=== PATIENT | male | born 1945 | race African-American/Black ===

== ENCOUNTER 2017-06-29 17:24 | Inpatient (IN) | payer OTHER, MEDICAID, MEDICARE ==
--- NOTE | 2017-06-29 17:44 | ED Physician Chart ---
Chief Complaint/HPI - Patient Information Date Seen:: 06/29/17 Time Seen:: 17:39 Chief Complaint:: SEIZURES History of Present Illness:: THIS IS A 71 YO MALE SENT FROM A HALFWAY FOR AN EVALUATION OF SUDDEN SEIZURE EARLIER TODAY. HE GETS DEPOKOTE FOR HIS SEIZURES. HE HAS A PAST HISTORY OF CVA, PROSTATE CANCER, GERD, ANEMIA, DEMENTIA AND DEPRESSION. HE HAS ALSO HAD HEART SURGERY IN THE PAST. Allergies:: Allergies Allergy/AdvReac Type Severity Reaction Status Date / Time No Known Allergies Allergy Verified 06/29/17 17:31 Vitals:: Vital Signs - 8 hr 06/29/17 17:32 Temp 98.5 F HR 73 RR 18 BP 121/81 O2 Sat % 99 Historian:: Medical Records Review:: Nurse's Note Reviewed, Old Chart Reviewed, Transfer documents Reviewed Review of Systems - Review of Systems General/Constitutional: No fever, No chills, No weight loss, No weakness, No diaphoresis, No edema, No loss of appetite, Other (HE ID NOT ABLE TO GIVE A REVIEW OF SYSTEMS.) Skin: No skin lesions, No rash, No bruising Head: No headache, No light-headedness Eyes: No loss of vision, No pain, No diplopia ENT: No earache, No nasal drainage, No sore throat, No tinnitus Neck: No neck pain, No swelling, No thyromegaly, No stiffness, No mass noted Cardio Vascular: No chest pain, No palpitations, No PND, No orthopnea, No edema Pulmonary: No SOB, No cough, No sputum, No wheezing GI: No nausea, No vomiting, No diarrhea, No pain, No melena, No hematochezia, No constipation, No hematemesis G/U: No dysuria, No frequency, No hematuria Musculoskeletal: No bone or joint pain, No back pain, No muscle pain Endocrine: No polyuria, No polydipsia Psychiatric: No prior psych history, No depression, No anxiety, No suicidal ideation Hematopoietic: No bruising, No lymphadenopathy Allergic/Immuno: No urticaria, No angioedema Neurological: No syncope, No focal symptoms, No weakness, No paresthesia, No headache, No seizure, No dizziness, No confusion, No vertigo Past Medical History - Past Medical History Obtainable: Yes Past Medical History: HTN, CAD, CVA/TIA, Dyslipidemia, PUD/GERD, Seizures, Dementia Family History: None Social History: Non Smoker, No Alcohol, No Drug Use, Single, Care Facility Surgical History: CABG Psychiatricy History: Depression Family Medical History - Family Member Mother History Unknown: Yes Living Status: Unknown Hx Family Cancer: (UNKNOWN) Hx Family Coronary Artery Disease: (UNKNOWN) Hx Family Congestive Heart Failure: (UNKNOWN) Hx Family Hypertension: (UNKNOWN) Hx Family Stroke: (UNKNOWN) Hx Family Diabetes: (UNKNOWN) Hx Family Seizures: (UNKNOWN) Hx Family Dementia: (UNKNOWN) Hx Family AIDS: (UNKNOWN) Hx Family COPD: (UNKNOWN) Hx Family Hepatitis: (UNKNOWN) Hx Family Psychiatric Problems: (UNKNOWN) Hx Family Tuberculosis: (UNKNOWN) Physical Exam - Physical Examination General/Constitutional: Awake, Well-developed, well-nourished, Alert, No distress, GCS 15, Non-toxic appearing, Ambulatory Other Gen/Cons comments:: LETHARGIC Head: Atraumatic Eyes: Lids, conjuctiva normal, PERRL, EOMI Skin: Nl inspection, No rash, No skin lesions, No ecchymosis, Well hydrated, No lymphadenopathy ENMT: External ears, nose nl, Nasal exam nl, Lips, teeth, gums nl Neck: Nontender, Full ROM w/o pain, No JVD, No nuchal rigidity, No bruit, No mass, No stridor Respiratory: Nl effort/Exclusion, Clear to Auscultation, No Wheeze/Rhonchi/Rales Cardio Vascular: RRR, No murmur, gallop, rubs, NL S1 S2 GI: No tenderness/rebounding/guarding, No organomegaly, No hernia, Normal BS's, Nondistended, No mass/bruits, No McBurney tenderness : No CVA tenderness Extremities: No tenderness or effusion, Full ROM, normal strength in all extremities, No edema, Normal digits & nails Neuro/Psych: Alert/oriented, DTR's symmetric, Normal sensory exam, Normal motor strength, Judgement/insight normal, Mood normal, Normal gait Other Neuro/Psych comments:: THERE IS RIGHT UPPER AND LOWER EXTREMITY SPASTIC PARALYSIS AND IS ALERT AND ORIENTED AT TIMES. Misc: normal gait, Normal back, No paraspinal tenderness Labs/Radiology/EKG Results - EKG Interpretations EKG Time:: 17:35 Rate & Rhythm: RATE= 71, SINUS [place]: LEFT Assessment - Assessment General Assessment: SEIZURES UNCONTROLLED ED Septic Shock - . Is Septic Shock (SBP<90, OR Lactate>4 mmol\L) present?: No - <6hrs of presentation: Vital Signs: Vital Signs - 8 hr 06/29/17 17:32 Temp 98.5 F HR 73 RR 18 BP 121/81 O2 Sat % 99
[2017-06-29 18:09] LABS: INR 1.17 (0.5-1.4); PROTHROMBIN TIME (TEST) 12.3 SECONDS (9.5-11.5)
[2017-06-29 18:11] LABS: ALB/GLOB RATIO 0.6 (1.0-1.8); ALKALINE PHOSPHATASE 45 U/L (34-104); ANION GAP 8.7 (7.0-16.0); BILIRUBIN,TOTAL 0.3 mg/dL (0.3-1.0); BUN - UREA NITROGEN 18 mg/dL (7-25); BUN/CREATININE RATIO 25.7; CARBON DIOXIDE 24.5 mEq/L (21.0-31.0); CHLORIDE 108 mEq/L (98-107); CHOLESTEROL 174 mg/dL (<200); CREATININE - SERUM 0.7 mg/dL (0.7-1.3); GLUCOSE 79 mg/dL (70-105); POTASSIUM SERUM 3.2 mEq/L (3.5-5.1); SGOT 18 U/L (13-39); SGPT/ALT 10 U/L (7-52); SODIUM SERUM 138 mEq/L (136-145); TRIGLYCERIDES 97 mg/dL (<150)
[2017-06-29 18:50] LABS: MEAN CELL VOLUME 82.1 fl (80-99); MEAN CORPUSCULAR HEMOGLOBIN 26.4 pg (27.0-31.0); MEAN CORPUSCULAR HGB CONC 32.2 pg (28.0-36.0); MEAN PLATELET VOLUME 8.9 fl; PLATELET COUNT 286 Th/cmm (150-400); RED BLOOD COUNT 3.43 Mil/cmm (3.80-5.80)
[2017-06-29 18:59] LABS: WHITE BLOOD COUNT 6.7 Th/cmm (4.8-10.8)
[2017-06-29 19:00] LABS: HEMATOCRIT 28.2 % (39.0-49.0); HEMOGLOBIN 9.1 gm/dL (12.6-17.4)
[2017-06-29 20:11] LABS: EOSINOPHIL 3 % (0-5); NEUTROPHILS 63 % (40-80); TOTAL CELLS COUNTED 100
[2017-06-29] MEDS ORDERED: Phenytoin 50 mg/mL 2 mL Vial IV ONE (22:49)
[2017-06-29 23:16] LABS: URINE BILIRUBIN NEGATIVE (NEGATIVE); URINE BLOOD NEGATIVE (NEGATIVE); URINE GLUCOSE (UA) NEGATIVE (NEGATIVE); URINE KETONE NEGATIVE (NEGATIVE); URINE PROTEIN TRACE mg/dL (NEGATIVE)
[2017-06-29 23:19] LABS: URINE COLOR YELLOW; URINE RBC 0-1 /hpf (0-5); URINE WBC 0-2 /hpf (0-5)
[2017-06-29 23:20] LABS: URINE BACTERIA OCCASIONAL /hpf (NONE SEEN); URINE EPITHELIAL CELLS FEW /lpf (FEW)
[2017-06-29] MEDS ORDERED: Phenytoin 50 mg/mL 5 mL Vial IV ONE (23:46)
[2017-06-30] MEDS: D5-0.45NS 1,000 ML IV SCH ×2 (00:04→19:46)
[2017-06-30] MEDS ORDERED: Phenytoin 50 mg/mL 5 mL Vial IV ONE (04:56)
[2017-06-30] MEDS: SODIUM CHLORIDE 0.9% IV SCH ×3 (05:19→21:17)
[2017-06-30] MEDS: PHENYTOIN IV SCH ×3 (05:19→21:17)
[2017-06-30 07:22] LABS: HEMOGLOBIN 10.8 gm/dL (12.6-17.4); MEAN CORPUSCULAR HEMOGLOBIN 26.1 pg (27.0-31.0); MEAN CORPUSCULAR HGB CONC 31.9 pg (28.0-36.0); RED BLOOD COUNT 4.13 Mil/cmm (3.80-5.80); RED CELL DISTRIBUTION WIDTH 18.7 % (11.5-20.0); WHITE BLOOD COUNT 6.9 Th/cmm (4.8-10.8)
[2017-06-30 07:26] LABS: HEMATOCRIT 33.8 % (39.0-49.0); PLATELET COUNT 359 Th/cmm (150-400)
[2017-06-30 07:42] LABS: ANION GAP 10.2 (7.0-16.0); BUN - UREA NITROGEN 16 mg/dL (7-25); BUN/CREATININE RATIO 22.9; CALCIUM SERUM 9.1 mg/dL (8.6-10.3); CARBON DIOXIDE 23.2 mEq/L (21.0-31.0); CHLORIDE 108 mEq/L (98-107); CHOLESTEROL 187 mg/dL (<200); CREATININE - SERUM 0.7 mg/dL (0.7-1.3); GLUCOSE 82 mg/dL (70-105); MAGNESIUM 1.9 mg/dL (1.9-2.7); POTASSIUM SERUM 3.4 mEq/L (3.5-5.1); SODIUM SERUM 138 mEq/L (136-145); TRIGLYCERIDES 80 mg/dL (<150)
--- NOTE | 2017-06-30 08:09 | Diagnostic Imaging Report ---
Exam: CT examination of brain. HISTORY: Seizure Total DLP equals 605 CTDI equals 35.6 Findings: Multiple views of the section of the brain were obtained from the base of skull to the vertex without the administration of contrast material. No prior studies available for comparison. The study demonstrates encephalomalacia with left temporal lobe low density area which most likely represent an old infarct. There is evidence of prominence of cerebral sulci suggestive of atrophy. There is ischemic white matter changes of old etiology appreciated. There is no evidence for hemorrhage midline shift or edema. The bony calvarium is intact the paranasal sinuses are well aerated. Mild sclerosis of mastoid air cells appreciated. IMPRESSION: 1. Atrophy 2. Encephalomalacia old infarct in the left temporoparietal lobe
--- NOTE | 2017-06-30 08:10 | Diagnostic Imaging Report ---
Exam: Portable exam of chest at 1741 HISTORY: Seizure Findings: Portable upright examination of chest at 1741 was reviewed, no prior studies available for comparison. The study demonstrates multiple metallic sutures status post restaurant thoracotomy. Mediastinal structures midline the heart is not enlarged the aortic arch calcified. Bony thorax intact. The costophrenic angles are clear. There is mild ill-defined peribronchial thickening area in the right midlung follow-up dictation recommended. IMPRESSION: ill-defined peribronchial density right midlung, early infiltrate cannot be excluded follow-up examination recommended if clinically indicated.
[2017-06-30 08:11] LABS: PHENYTOIN 28.8 ug/ml (10.0-20.0)
[2017-06-30 08:34] LABS: BAND NEUTROPHILE 4 % (0-10); EOSINOPHIL 2 % (0-5); NEUTROPHILS 76 % (40-80); TOTAL CELLS COUNTED 100
[2017-06-30 08:35] LABS: ANISOCYTOSIS 1+; PLATELET ESTIMATE ADEQUATE (NORMAL); PLATELET MORPHOLOGY NORMAL (NORMAL); TARGET CELLS 1+
[2017-06-30] MEDS ORDERED: VTE Chemical Prophylaxis Screen/Admission MC PRN (09:00)
--- NOTE | 2017-06-30 13:54 | History & Physical ---
ADMIT DATE: 06/30/2017 CHIEF COMPLAINT: Seizure activity. HISTORY OF PRESENT ILLNESS: This 71-year-old male, who lives in a detention facility, with a history of CVA, prostate CA, GERD, anemia, dementia, who presented to the ER with one episode of seizure activity. The patient is somewhat of a poor historian, but he denies any prolonged seizure activity, but could not tell me when the last time he had a seizure. Pertinent findings on admission include a valproic acid less than 10, although I dont believe pt is on Depakoate. He also is on Dilantin and Keppra. PAST MEDICAL HISTORY: As noted above, also history of hyperlipidemia, glaucoma, as noted above, CVA with right-sided hemiplegia, history of anemia, history of CAD/[place], essential hypertension. PAST SURGICAL HISTORY: Unknown. He does have a lower extremity scar. FAMILY HISTORY: Likely noncontributory. SOCIAL HISTORY: Currently, no tobacco, ETOH, or illicit drug usage. Lives at [facility]. ALLERGIES: NKDA. OUTPATIENT MEDICATIONS: Ibuprofen 600 mg t.i.d. p.r.n. with meals for pain, Keppra 500mg b.i.d., latanoprost one drop to the left eye, multivitamins every day, timolol 0.5% solution 1 drop to each eye once a day, Pletal 100 mg b.i.d., Megace 10 mL b.i.d., multivitamins and minerals 1 tab every day, Tylenol 325 q. 6 p.r.n. for pain or fever, Zocor 20 mg at bedtime, vitamin D3 1000 international units every day. REVIEW OF SYSTEMS: A good review of systems was not able to be done given patient's condition, but per notes, there is no recent history of fever or chills. CARDIAC: No chest pain or palpitations. PULMONARY: No cough. No shortness of breath. GASTROINTESTINAL: No bowel habit changes including no nausea, vomiting, diarrhea, abdominal pain. GENITOURINARY: No symptoms of UTI. NEUROLOGIC: Please refer to HPI. PHYSICAL EXAMINATION: VITAL SIGNS: Temperature 97.0, pulse 85, respirations 18, BP 109/73, satting 99% on room air. GENERAL: He is well developed, well nourished, thin male, currently asleep, arousable. HEENT: Normocephalic, atraumatic. His eye exam was difficult to assess, but there is noticeable cloudiness on the right eye. Oropharynx moist and clear. NECK: There is no JVD or LAD. CARDIOVASCULAR: Regular rate and rhythm with distant sounds. LUNGS: Clear to auscultation bilaterally. ABDOMEN: Soft, supple, nontender, nondistended, normoactive bowel sounds. EXTREMITIES: On lower extremities, there is no pedal edema. NEUROLOGIC: Grossly intact. There is right-sided weakness on the upper extremities and there appears to be a decreased range of much on the right side. Cranial nerves 2-12 appear to be grossly intact. Full exam cannot be done given patient's condition. LABORATORY DATA: White count 6.7, H and H 9/, platelet count of 286. INR is 1.17. Sodium 138, potassium 3.2, chloride 108, CO2 24, BUN 18, creatinine 0.7. LFTs were essentially within normal limits. Albumin 2.8 and glucose 79. UA was essentially within normal limits. Valproic acid is less than 10 and Dilantin level is 28. DIAGNOSTICS: CT of the head without contrast shows: 1. Atrophy. 2. Encephalomalacia/old infarct in the left temporoparietal lobe. Chest x-ray shows an ill-defined peribronchial density in the right mid lung, early infiltrate cannot be excluded. IMPRESSION: 1. Seizures with under therapeutic Depakote level. 2. History of seizure activity. 3. History of old cerebrovascular accident. 4. History of coronary artery disease, currently stable. 5. History of essential hypertension. 6. History of hyperlipidemia. 7. History of glaucoma. 8. History of dementia likely secondary to cerebrovascular accident. 9. Rule out pneumonia. PLAN: The patient has been admitted to telemetry for further management and care. The patient will be monitored for seizure activity. Seizure precautions have been implemented. His Dilantin and Keppra have been converted to IV. Depakoate will be started as well. A Neurology eval also has been asked for further management and care. The patient will be started on empiric IV antibiotics and followup x-ray will be done in the morning. An ST eval also has been asked for and his other p.o. medications will be started once he is cleared for p.o. intake. [facility]# [id number] MTDD
[2017-06-30] MEDS: KCL 20mEq/100mL Premix 20 MEQ/100 ML PIGGYBACK IV SCH ×2 (16:09→21:19)
[2017-06-30] MEDS: cefTRIAXone 1 GM in Sodium Chloride 0.9% 50 ML IV SCH (19:46)
[2017-06-30] MEDS ORDERED: SIMVASTATIN PO SCH (21:00)
[2017-06-30] MEDS ORDERED: KCL 20mEq/100mL Premix 20 MEQ/100 ML PIGGYBACK IV ONE (21:17)
--- NOTE | 2017-07-01 04:12 | Admit Criteria Form ---
Admit Criteria Forms - Admit Criteria Diagnosis: SEIZURE Clinical Indications for Admission to Inpatient Care (Place 'X' for any and all applicable criteria): Admission is indicated for seizure and 1 or more of the following (1)(2)(3)(4)(5 )(6) [X ]I. Inpatient admission required rather than observation care (Also use Seizure: Observation Care Criteria as appropriate) because of 1 or more of the following: [ ]1) Altered mental status that is severe or persistent [ ]2) New focal neurologic deficit that is severe or persistent [ ]3) Metabolic disorder (eg, hypoglycemia, hyponatremia) that is severe or persistent [ ]4) Recurrent seizure [X ]5) Outpatient antiseizure regimen cannot be established (eg , patient cannot tolerate medication, initiation requires inpatient care) [ ]6) Need for ongoing intravenous infusion of anti-seizure medication [ ]7) Cerebral bleeding, hydrocephalus, or vasospasm monitoring [ ]8) Increased intracranial pressure or cerebral edema monitoring [ ]9) Other conditions, treatment or monitoring requiring inpatient admission [ ]II. Status epilepticus [A] or repetitive seizures not controlled with emergent treatment (6)(8) [ ]III. Brain disorder (eg, tumor, edema, and hydrocephalus) that requiring monitoring or intervention available only at inpatient level of care. [ ]IV. Brain insult (eg, severe trauma, stroke, drug toxicity, or withdrawal) that requires monitoring or intervention available only at inpatient level of care (10)(11) [ ]V. Cardiac arrhythmias of immediate concern Extended stay beyond goal length of stay may be needed for (22) [ ]a) Complications of status epilepticus [ ]b) Refractory status epilepticus [ ]c) Etiology-specific therapy for conditions such as DISPLAY ASSOCIATE infection, head injury,eclampsia, severe metabolic abnormalities, and brain tumor [ ]d) Residual neurologic damage, [ ]e) Initiation of significant change to anticonvulsant treatment [ ]f) Older patients (65 years or older) [ ]g) Patient requiring intubation (eg, to protect airway) The original [facility] [employer] content created by [facility] [employer] has been revised. The portions of the content which have been revised are identified through the use of italic text or in bold, and [facility] [employer] has neither reviewed nor approved the modified material. All other unmodified content is copyright [facility]. Please see references footnoted in the original [facility] edition 2017 Admit Criteria Met?: Yes
[2017-07-01 07:05] LABS: HEMATOCRIT 36.3 % (39.0-49.0); HEMOGLOBIN 11.4 gm/dL (12.6-17.4); MEAN CELL VOLUME 81.1 fl (80-99); MEAN CORPUSCULAR HEMOGLOBIN 25.4 pg (27.0-31.0); MEAN CORPUSCULAR HGB CONC 31.3 pg (28.0-36.0); MEAN PLATELET VOLUME 7.8 fl; RED BLOOD COUNT 4.48 Mil/cmm (3.80-5.80); RED CELL DISTRIBUTION WIDTH 19.1 % (11.5-20.0); WHITE BLOOD COUNT 6.8 Th/cmm (4.8-10.8)
[2017-07-01 07:07] LABS: PLATELET COUNT 226 Th/cmm (150-400)
[2017-07-01 08:08] LABS: ANION GAP 15.2 (7.0-16.0); BUN - UREA NITROGEN 14 mg/dL (7-25); BUN/CREATININE RATIO 23.3; CALCIUM SERUM 9.1 mg/dL (8.6-10.3); CARBON DIOXIDE 18.8 mEq/L (21.0-31.0); CHLORIDE 111 mEq/L (98-107); CREATININE - SERUM 0.6 mg/dL (0.7-1.3); GLUCOSE 75 mg/dL (70-105); SODIUM SERUM 141 mEq/L (136-145)
[2017-07-01 08:10] LABS: PHENYTOIN 25.1 ug/ml (10.0-20.0)
[2017-07-01 08:29] LABS: BAND NEUTROPHILE 4 % (0-10); EOSINOPHIL 4 % (0-5); NEUTROPHILS 72 % (40-80); PLATELET ESTIMATE ADEQUATE (NORMAL); PLATELET MORPHOLOGY PLATELET CLUMPS SEEN (NORMAL); TOTAL CELLS COUNTED 100
[2017-07-01] MEDS: cefTRIAXone 1 GM in Sodium Chloride 0.9% 50 ML IV SCH (13:38)
[2017-07-01] MEDS: D5-0.45NS 1,000 ML IV SCH (13:39)
--- NOTE | 2017-07-01 20:40 | Consultation ---
DATE OF CONSULTATION: 07/01/2017 NEUROLOGY CONSULT HISTORY OF PRESENT ILLNESS: The patient is a 71-year-old who came in because the patient has seizure. The patient has known history of seizures. MEDICATIONS: For seizure, the patient is on Depakote 500 b.i.d. and Keppra 750 b.i.d. PAST MEDICAL HISTORY: 1. The patient has previous stroke with right hemiplegia and speech difficulty. 2. History of hypertension. 3. Coronary artery disease and IN. 4. Hyperlipidemia. 5. Glaucoma. 6. Dementia with very little memory. SURGERIES: Unknown. SOCIAL HISTORY: Does not smoke or drink, in a facility. REVIEW OF SYSTEMS: The patient has no seizures here. Right hemiplegia, able to swallow. Memory loss. PHYSICAL EXAMINATION: VITAL SIGNS: Temperature 98.2, blood pressure 110/70, pulses around about 80. NECK: Supple, no bruits. HEART: Sounds S1, S2. LUNGS: Clear. NEUROLOGIC: The patient is awake. He is able to name simple objects such as pen and glasses. When asked him his age, he said, "I don't know." When asked him where he lives, he says, "I don't know." The patient has right corneal scarring. Left vision present. The patient's right arm in semi-flexed contracture. The right leg is extended. Very loose movement of the right side. Will move the left side. INVESTIGATIONS: CT scan of the head, previous left temporoparietal infarction. LABORATORY DATA: WBC 6.8 and hemoglobin 11.4. Sodium 141. The patient's phenytoin level 28.8 and today on 07/01/2017 is 25.1. Valproic acid level on 06/29/2017 was less than 10, now is 38.9. IMPRESSION: 1. Seizures. The patient with phenytoin toxicity. At the moment, being held. We will restart once the level is below 20. Also, continue the patient's Depakote and Keppra. 2. The patient has history of stroke with right hemiplegia and partial aphasia. 3. Hypertension. 4. ____ Rule out pneumonia. 5. . Rule out urinary tract infection. JOB# [id number]
[2017-07-01] MEDS ORDERED: SIMVASTATIN PO SCH (21:00)
[2017-07-02] MEDS: D5-0.45NS 1,000 ML IV SCH (06:24)
[2017-07-02 06:36] LABS: RED CELL DISTRIBUTION WIDTH 18.7 % (11.5-20.0); WHITE BLOOD COUNT 6.2 Th/cmm (4.8-10.8)
[2017-07-02 06:42] LABS: HEMATOCRIT 32.3 % (39.0-49.0); HEMOGLOBIN 10.4 gm/dL (12.6-17.4); MEAN CELL VOLUME 82.1 fl (80-99); MEAN CORPUSCULAR HEMOGLOBIN 26.4 pg (27.0-31.0); MEAN CORPUSCULAR HGB CONC 32.2 pg (28.0-36.0); MEAN PLATELET VOLUME 7.9 fl; PLATELET COUNT 272 Th/cmm (150-400)
[2017-07-02 06:54] LABS: RED BLOOD COUNT 3.92 Mil/cmm (3.80-5.80)
[2017-07-02 06:57] LABS: ANION GAP 8.3 (7.0-16.0); BUN - UREA NITROGEN 13 mg/dL (7-25); BUN/CREATININE RATIO 18.6; CALCIUM SERUM 8.5 mg/dL (8.6-10.3); CARBON DIOXIDE 24.5 mEq/L (21.0-31.0); CHLORIDE 107 mEq/L (98-107); CREATININE - SERUM 0.7 mg/dL (0.7-1.3); GLUCOSE 73 mg/dL (70-105); MAGNESIUM 1.8 mg/dL (1.9-2.7); PHENYTOIN 14.1 ug/ml (10.0-20.0); POTASSIUM SERUM 3.8 mEq/L (3.5-5.1); SODIUM SERUM 136 mEq/L (136-145)
--- NOTE | 2017-07-02 07:49 | Progress Notes ---
DATE: 07/02/2017 SUBJECTIVE: The patient is in bed, awake. He has dysarthric aphasia. The patient noted these seizures. The patient is with right hemiplegia. MEDICATIONS: Keppra 750 b.i.d., Depakote 500 mg b.i.d. OBJECTIVE: VITAL SIGNS: Temperature is 98.4, blood pressure is 115/74, pulse rate 76. NECK: Supple. No bruits. HEART: Sounds S1, S2. LUNGS: Clear. NEUROLOGIC: The patient will answer simple questions, "I don't know." EYES: The right cornea was scarring. Left vision present. EXTREMITIES: Right arm and leg weakness. Right arm flexed. Left extended. INVESTIGATIONS: CT scan, left temporoparietal infarction. ASSESSMENT: 1. Seizure. 2. Previous stroke with right hemiplegia, partial aphasia. 3. Hypertension. 4. Rule out pneumonia. 5. Rule out urinary tract infection. PLAN: Continue present medication, Keppra and Depakote. JOB# [id number]
[2017-07-02] MEDS ORDERED: Multivitamin w/ Minerals Tab PO SCH (09:00)
[2017-07-02] MEDS ORDERED: LACTOSE REDUCED FOOD PO SCH (09:00)
[2017-07-02] MEDS ORDERED: PROTEIN HYDROLYS PO SCH (09:00)
[2017-07-02] MEDS ORDERED: AMINO ACIDS PO SCH (09:00)
[2017-07-02 09:16] LABS: BAND NEUTROPHILE 2 % (0-10); TOTAL CELLS COUNTED 100
[2017-07-02 09:17] LABS: EOSINOPHIL 4 % (0-5); NEUTROPHILS 67 % (40-80); PLATELET ESTIMATE ADEQUATE (NORMAL)
--- NOTE | 2017-07-02 09:24 | Diagnostic Imaging Report ---
Exam: Chest portable HISTORY: Pneumonia. Findings Portable upright examination of the chest at 0907 hours reviewed, no prior studies available comparison. Bony thorax is intact. Multiple metallic sutures are noted status post transsternal thoracotomy. The heart is prominent. Atelectatic changes in right minor fissure appreciated There is evidence for distention and dilatation of the bowel loops under the left hemidiaphragm with elevation left hemidiaphragm. Left basilar atelectasis versus early infiltrate cannot be excluded. Bony thorax intact. IMPRESSION: Right minor fissure atelectasis Question of left basilar infiltrates. Elevation left hemidiaphragm with distended colon.
--- NOTE | 2017-07-02 11:22 | Discharge Summary ---
DATE OF DISCHARGE: 07/02/2017 ADMITTING DIAGNOSES: Seizure activity, questionable right mid lung infiltrate and Dilantin toxicity. SECONDARY DIAGNOSES: Include history of cerebrovascular accident with right hemiparesis and dementia, history of chronic anemia, history of seizures, history of coronary artery disease/myocardial infarction, essential hypertension, glaucoma, hyperlipidemia. DISCHARGE DIAGNOSES: Seizures resolved, Dilantin toxicity resolved. Right mid lung density, clinically stable. CONSULTANTS: Dr. Sexton. MAJOR PROCEDURES: He underwent a CT of the head on 06/29/2017 showin. Atrophy. 2. Encephalomalacia/old infarct in the left temporal lobe. DISCHARGE MEDICATIONS: Acetaminophen p.r.n. for headaches or pain, Depakote DR 500 mg b.i.d., heparin 5000 units q.12, latanoprost eyedrops 1 drop to left eye at 1300 hours, Keppra 750 b.i.d., Dilantin 100 mg t.i.d., simvastatin 20 mg at bedtime, timolol solution 1 drop per eye, amino acids and protein solution, vitamin D3 1000 units every day, Pletal 100 mg b.i.d.; Motrin 600 mg t.i.d. p.r.n. for pain, Megace 10 mL b.i.d., and multivitamins and minerals every day. BRIEF HOSPITAL COURSE: The patient is a 71-year-old -[place] gentleman with the above-mentioned diagnoses, [facility] and now has been followed up by years by Dr. Griffin's service. The patient was transferred to the ER after he was found by a SNF nurse shaking with consistency of previous seizure activities, which I am unsure as to when was the last time he had a seizure episode. Nevertheless, he was transferred to the ER where pertinent findings included a CT of the head, which was essentially negative. Please see results above and he also was noted to have a valproic acid less than 10, although the patient did not come in with valproic acid as one of his home meds. He also apparently had no Dilantin, but he was loaded with an IV Dilantin dose by the ER physician, apparently his only home med for seizure was Keppra. The patient was admitted to the telemetry [place] and as noted above, was loaded with Dilantin and eventually was started on Depakote. His Dilantin level was noted to be high by 06/30/2017 at 28.8, but had normalized to level of 14.1 by 07/02/2017. His Depakote also was noted to be therapeutic by 07/02/2017 at a level 52.2. His confusion quickly resolved. He was admitted, able to tolerate clear liquids and eventually pureed diet well. As far as of his workup, there was an x-ray done on admission showing a questionable right middle lobe density, which a repeat x-ray has been ordered with official results pending. However, patient is asymptomatic with showing no pulmonary or septic signs and symptoms. CONDITION ON DISCHARGE: Stable. DISPOSITION: The patient will be transferred back to [facility] under the care of Dr. Griffin. JOB# [id number] ALON
[2017-07-02] MEDS: cefTRIAXone 1 GM in Sodium Chloride 0.9% 50 ML IV SCH (15:10)
== END 2017-07-02 16:14 | disposition home or self-care (01) | DRG 101 ==
LOC: ER 17:24 → TELE 21:30 → MSI 07-02 08:45
PROVIDERS: ADMIT Internal Medicine; ATTEND Internal Medicine
DX: R56.9 Unspecified convulsions (principal); G93.89 Other specified disorders of brain; F03.90 Unspecified dementia, unspecified severity, without behavioral disturbance, psychotic disturbance, mood disturbance, and anxiety; E44.1 Mild protein-calorie malnutrition; I69.351 Hemiplegia and hemiparesis following cerebral infarction affecting right dominant side; J98.11 Atelectasis; I25.10 Atherosclerotic heart disease of native coronary artery without angina pectoris; I10 Essential (primary) hypertension; E78.5 Hyperlipidemia, unspecified; H40.9 Unspecified glaucoma; K21.9 Gastro-esophageal reflux disease without esophagitis; F32.9 Major depressive disorder, single episode, unspecified; T42.0X5A Adverse effect of hydantoin derivatives, initial encounter; D64.9 Anemia, unspecified; J98.4 Other disorders of lung; I25.2 Old myocardial infarction; Z85.46 Personal history of malignant neoplasm of prostate; Z87.11 Personal history of peptic ulcer disease; Z95.1 Presence of aortocoronary bypass graft; I69.328 Other speech and language deficits following cerebral infarction; Y92.89 Other specified places as the place of occurrence of the external cause; I69.320 Aphasia following cerebral infarction
CPT/HCPCS: 36415-UA; 70450-TC; 71010-TC; 80048-TC; 80053-TC; 80061-TC; 80164-TC; 80185-TC; 80299-90; 81001-TC; 83036-90; 83735-TC; 84443-TC; 84484-TC; 85007-TC; 85027-TC; 85610-TC; 85730-TC; 87086-90; 93005; J0696; J1165; J1644; J3480; Z7610

== ENCOUNTER 2017-07-27 13:58 | Inpatient (IN) | payer MEDICARE, MEDICAID ==
--- NOTE | 2017-07-27 14:26 | ED Physician Chart ---
ED Chief Complaint/HPI - Patient Information Date Seen:: 07/27/17 Time Seen:: 14:11 Chief Complaint:: ALOC History of Present Illness:: THIS IS A CHRONICALLY ILL 71 YO MALE SENT HERE FROM THE [facility] FOR [facility]ALUATION AND TREATMENT. HE HAS A HISTORY OF SEIZURES, STROKES AND DEMENTIA. HE IS COMPLETELY ALTERED. Allergies:: Allergies Allergy/AdvReac Type Severity Reaction Status Date / Time No Known Allergies Allergy Verified 06/29/17 17:31 Vitals:: Vital Signs - 8 hr 07/27/17 14:01 Temp 97.8 F HR 88 RR 16 BP 127/73 O2 Sat % 98 Historian:: EMS, Medical Records Review:: Nurse's Note Reviewed, Transfer documents Reviewed ED Review of Systems - Review of Systems General/Constitutional: Other (THE PATIENT IS UNABLE TO GIVE A REVIEW OF SYSTEMS.) ED Past Medical History - Past Medical History Obtainable: Yes Past Medical History: HTN, CAD, CVA/TIA, Dyslipidemia, Seizures, Dementia Family History: None Social History: Non Smoker, No Alcohol, No Drug Use, Care Facility Surgical History: None Psychiatricy History: Dementia Medication: Reviewed Family Medical History - Family Member Mother History Unknown: Yes Ethnicity: Non- Living Status: Unknown Hx Family Cancer: (UNKNOWN) Hx Family Coronary Artery Disease: (UNKNOWN) Hx Family Congestive Heart Failure: (UNKNOWN) Hx Family Hypertension: (UNKNOWN) Hx Family Stroke: (UNKNOWN) Hx Family Diabetes: (UNKNOWN) Hx Family Seizures: (UNKNOWN) Hx Family Dementia: (UNKNOWN) Hx Family AIDS: (UNKNOWN) Hx Family COPD: (UNKNOWN) Hx Family Hepatitis: (UNKNOWN) Hx Family Psychiatric Problems: (UNKNOWN) Hx Family Tuberculosis: (UNKNOWN) ED Physical Exam - Physical Examination General/Constitutional: Well-developed, well-nourished, Alert, No distress, GCS 15, Non-toxic appearing, Ambulatory Other Gen/Cons comments:: THE PATIENT IS LETHARGIC AND RESPONSIVE TO HIS NAME ONLY. Head: Atraumatic Eyes: Lids, conjuctiva normal, PERRL, EOMI Skin: Nl inspection, No rash, No skin lesions, No ecchymosis, Well hydrated, No lymphadenopathy ENMT: External ears, nose nl, Nasal exam nl, Lips, teeth, gums nl Neck: Nontender, Full ROM w/o pain, No JVD, No nuchal rigidity, No bruit, No mass, No stridor Respiratory: Nl effort/Exclusion, Clear to Auscultation, No Wheeze/Rhonchi/Rales Cardio Vascular: RRR, No murmur, gallop, rubs, NL S1 S2 GI: No tenderness/rebounding/guarding, No organomegaly, No hernia, Normal BS's, No mass/bruits, No McBurney tenderness Other GI comments:: ABDOMEN IS SOFT BUT DISTENDED : No CVA tenderness Extremities: No tenderness or effusion, Full ROM, normal strength in all extremities, No edema, Normal digits & nails Neuro/Psych: DTR's symmetric (DISORIENTED X3, UNEQUAL DTR'S,RIGHT SIDED SPASTIC PARALYSIS.), Normal sensory exam, Normal motor strength Misc: normal gait, Normal back, No paraspinal tenderness ED Labs/Radiology/EKG Results - Lab Results Results: Abnormal Lab Results 07/27/17 07/27/17 07/27/17 14:54 14:54 14:54 WBC 7.6 D RBC 3.84 Hgb 10.3 L Hct 32.3 L MCV 84.2 MCH 26.8 L MCHC Differential 31.8 RDW 20.7 H Plt Count 279 MPV 8.3 Neutrophils % 73.1 Lymphocytes % 15.0 L Monocytes % 9.3 Eosinophils % 2.5 Basophils % 0.1 PT 14.7 H INR 1.39 PTT (Actin FS) 25.2 L Sodium Potassium Chloride Carbon Dioxide Anion Gap BUN Creatinine Est GFR ( Amer) Est GFR (Non-Af Amer) BUN/Creatinine Ratio Glucose Calcium Total Bilirubin AST ALT Alkaline Phosphatase Troponin I Total Protein Albumin Globulin Albumin/Globulin Ratio Triglycerides 89 Cholesterol 150 LDL Cholesterol Direct 98 HDL Cholesterol 37 Phenytoin Valproic Acid 07/27/17 07/27/17 07/27/17 14:54 14:54 14:54 WBC RBC Hgb Hct MCV MCH MCHC Differential RDW Plt Count MPV Neutrophils % Lymphocytes % Monocytes % Eosinophils % Basophils % PT INR PTT (Actin FS) Sodium 142 Potassium 4.0 Chloride 112 H Carbon Dioxide 21.7 Anion Gap 12.3 BUN 26 H Creatinine 0.7 Est GFR ( Amer) TNP Est GFR (Non-Af Amer) TNP BUN/Creatinine Ratio 37.1 Glucose 91 Calcium 9.3 Total Bilirubin 0.3 AST 36 ALT 16 Alkaline Phosphatase 62 Troponin I 0.01 Total Protein 8.5 H Albumin 3.1 L Globulin 5.4 Albumin/Globulin Ratio 0.6 L Triglycerides Cholesterol LDL Cholesterol Direct HDL Cholesterol Phenytoin 24.5 H Valproic Acid 07/27/17 14:54 WBC RBC Hgb Hct MCV MCH MCHC Differential RDW Plt Count MPV Neutrophils % Lymphocytes % Monocytes % Eosinophils % Basophils % PT INR PTT (Actin FS) Sodium Potassium Chloride Carbon Dioxide Anion Gap BUN Creatinine Est GFR ( Amer) Est GFR (Non-Af Amer) BUN/Creatinine Ratio Glucose Calcium Total Bilirubin AST ALT Alkaline Phosphatase Troponin I Total Protein Albumin Globulin Albumin/Globulin Ratio Triglycerides Cholesterol LDL Cholesterol Direct HDL Cholesterol Phenytoin Valproic Acid 50.0 - EKG Interpretations EKG Time:: 14:13 Rate & Rhythm: RATE= 86, NSR, LEFT AXIS [place]: LEFT ED Assessment - Assessment General Assessment: SEIZURE DISORDER WITH LOW DEPAKOTE LEVEL AND TOXIC DILANTIN LEVEL ED Septic Shock - . Is Septic Shock (SBP<90, OR Lactate>4 mmol\L) present?: No - <6hrs of presentation: Vital Signs: Vital Signs - 8 hr 07/27/17 14:01 Temp 97.8 F HR 88 RR 16 BP 127/73 O2 Sat % 98 ED Reassessment (Disposition) - Diagnosis Diagnosis:: ALOC SEIZURE DISORDER DILANTIN TOXICITY - Patient Disposition Discharge/Transfer:: Acute Care w/in this hosp Admitting Medical Physician:: Robbie Coles Condition at Disposition:: Unchanged ED Discharge Plan - Patient Disposition Admit/Discharge/Transfer: Acute Care w/in this hosp Condition at Disposition: Unchanged
--- NOTE | 2017-07-27 15:02 | Diagnostic Imaging Report ---
CHEST X-RAY: AP view INDICATION: Shortness of breath COMPARISON: 07/02/2017 FINDINGS: Slight residual right midlung infiltrate is noted. Left basal atelectasis is noted with left trace left pleural fluid.. Gas distended loops of bowel are seen with elevation of left hemidiaphragm. There is evidence of prior median sternotomy. Mild cardiomegaly is noted with tortuous aorta with atherosclerosis. Degenerative changes of the spine are noted. IMPRESSION: Slight residual right midlung infiltrate. Left basal atelectasis and trace left pleural effusion. Mild cardiomegaly with atherosclerosis. Gaseous distended loops of bowel gas noted.
[2017-07-27 15:07] LABS: % BASOPHILS 0.1 % (0.0-2.0); % EOSINOPHILS 2.5 % (0.0-5.0); % MONOCYTES 9.3 % (2.0-10.0); % NEUTROPHILS 73.1 % (40.0-80.0); HEMATOCRIT 32.3 % (41.0-60); HEMOGLOBIN 10.3 gm/dL (12-16); MEAN CELL VOLUME 84.2 fl (80-99); MEAN CORPUSCULAR HEMOGLOBIN 26.8 pg (27.0-31.0); MEAN CORPUSCULAR HGB CONC 31.8 pg (28.0-36.0); MEAN PLATELET VOLUME 8.3 fl; NEUTROPHILE ABSOLUTE 5.6 Th/cmm (1.8-8.0); PLATELET COUNT 279 Th/cmm (150-400); RED BLOOD COUNT 3.84 Mil/cmm (3.80-5.80); RED CELL DISTRIBUTION WIDTH 20.7 % (11.5-20.0)
[2017-07-27 15:09] LABS: WHITE BLOOD COUNT 7.6 Th/cmm (4.8-10.8)
[2017-07-27 15:21] LABS: INR 1.39 (0.5-1.4); PROTHROMBIN TIME (TEST) 14.7 SECONDS (9.5-11.5)
[2017-07-27 15:29] LABS: ALB/GLOB RATIO 0.6 (1.0-1.8); ALKALINE PHOSPHATASE 62 U/L (34-104); ANION GAP 12.3 (7.0-16.0); BILIRUBIN,TOTAL 0.3 mg/dL (0.3-1.0); BUN - UREA NITROGEN 26 mg/dL (7-25); BUN/CREATININE RATIO 37.1; CALCIUM SERUM 9.3 mg/dL (8.6-10.3); CARBON DIOXIDE 21.7 mEq/L (21.0-31.0); CHLORIDE 112 mEq/L (98-107); CREATININE - SERUM 0.7 mg/dL (0.7-1.3); GLUCOSE 91 mg/dL (70-105); SGOT 36 U/L (13-39); SGPT/ALT 16 U/L (7-52); SODIUM SERUM 142 mEq/L (136-145)
[2017-07-27 15:30] LABS: CHOLESTEROL 150 mg/dL (<200); TRIGLYCERIDES 89 mg/dL (<150)
[2017-07-27 19:51] VITALS: BP 141/85
[2017-07-27] MEDS: Sodium Chloride 0.9% 1,000 ML IV SCH (21:06)
[2017-07-28 07:51] LABS: % BASOPHILS 0.1 % (0.0-2.0); % EOSINOPHILS 3.6 % (0.0-5.0); % LYMPHOCYTES 17.7 % (20.0-50.0); % MONOCYTES 6.2 % (2.0-10.0); % NEUTROPHILS 72.4 % (40.0-80.0); HEMATOCRIT 31.7 % (41.0-60); HEMOGLOBIN 10.2 gm/dL (12-16); MEAN CELL VOLUME 84.6 fl (80-99); MEAN CORPUSCULAR HEMOGLOBIN 27.1 pg (27.0-31.0); MEAN PLATELET VOLUME 8.2 fl; NEUTROPHILE ABSOLUTE 4.3 Th/cmm (1.8-8.0); PLATELET COUNT 270 Th/cmm (150-400); RED BLOOD COUNT 3.75 Mil/cmm (3.80-5.80); RED CELL DISTRIBUTION WIDTH 21.1 % (11.5-20.0)
[2017-07-28 07:52] LABS: WHITE BLOOD COUNT 5.9 Th/cmm (4.8-10.8)
[2017-07-28 08:01] LABS: BUN - UREA NITROGEN 26 mg/dL (7-25); BUN/CREATININE RATIO 43.3; CALCIUM SERUM 8.6 mg/dL (8.6-10.3); CARBON DIOXIDE 23.5 mEq/L (21.0-31.0); CHLORIDE 112 mEq/L (98-107); CREATININE - SERUM 0.6 mg/dL (0.7-1.3); GLUCOSE 71 mg/dL (70-105); MAGNESIUM 1.9 mg/dL (1.9-2.7); POTASSIUM SERUM 3.5 mEq/L (3.5-5.1); SODIUM SERUM 142 mEq/L (136-145)
[2017-07-28] MEDS ORDERED: PROTEIN HYDROLYS PO SCH (09:00)
[2017-07-28] MEDS ORDERED: AMINO ACIDS PO SCH (09:00)
[2017-07-28] MEDS ORDERED: LACTOSE REDUCED FOOD PO SCH (09:00)
--- NOTE | 2017-07-28 09:03 | Diagnostic Imaging Report ---
Head CT without intravenous contrast Indication: Altered mental status Comparison: 06/29/2017 Technique: Axial images were obtained from the vertex to the skull base without IV contrast. Coronal reconstructions were made. Total DLP: 605, CTDI36.3 FINDINGS: Images of the brain obtained without contrast demonstrate no evidence of an acute hemorrhage. Old left MCA territory infarct is seen with associated encephalomalacia left frontal and left temporal lobes. The ventricles and basal cisterns are patent. No mass effect or midline shift. Atrophy is noted. No evidence of a skull fracture or focal soft tissue swelling. Right globe calcifications are again noted. IMPRESSION: No evidence of acute intracranial hemorrhage. Evidence of previous old left MCA territory infarct with associated encephalomalacia. Atrophy. Atherosclerotic vascular disease. Right globe calcifications which may be due to chronic infectious or inflammatory process. Please correlate with clinical findings.
[2017-07-28] MEDS: Sodium Chloride 0.9% 1,000 ML IV SCH (10:24)
[2017-07-29] MEDS: Sodium Chloride 0.9% 1,000 ML IV SCH ×2 (00:30→14:58)
--- NOTE | 2017-07-29 03:08 | History & Physical ---
ADMIT DATE: 07/27/2017 CHIEF COMPLAINT: Altered mental status, lethargy. HISTORY OF PRESENT ILLNESS: A 71-year-old -[place] male, who was admitted to this facility about a month ago on 06/29/2017 for seizure disorder, diagnosed with subtherapeutic Dilantin, now was transferred from [facility] for the above-mentioned complaint. Pertinent findings include a Dilantin level of 24. The patient has been admitted to Med/Surg for further management and care. PAST MEDICAL HISTORY: Include seizure disorder, left MCA infarct, vascular dementia, history of prostate CA, hyperlipidemia, history of glaucoma, chronic anemia, history of CAD/ME and essential hypertension. PAST SURGICAL HISTORY: Unknown, but he does have a lower extremity scar. FAMILY HISTORY: Likely noncontributory. SOCIAL HISTORY: No tobacco, ETOH or illicit drug usage. Lives at the long-term. ALLERGIES: NKDA. OUTPATIENT MEDICATIONS: Tylenol p.r.n., vitamin D3 of 1000 international units every day, multivitamins and minerals, timolol eyedrops 1 drop every day. REVIEW OF SYSTEMS: A good review of systems was unable to be done given the patient is a poor historian. PHYSICAL EXAMINATION: VITAL SIGNS: Temperature 98.5, pulse 87, respirations 18, BP 115/77, satting 96% on room air. GENERAL: Well-developed, well-nourished, thin male, not in acute distress. He is drowsy, but arousable, not in acute distress. HEAD AND NECK: Normocephalic, atraumatic. CARDIOVASCULAR: Regular rate and rhythm without any murmurs. LUNGS: Decreased at the bases, but clear to auscultation bilaterally. ABDOMEN: Soft, supple, nontender, nondistended, normoactive bowel sounds. EXTREMITIES: There is no edema in lower extremities. LABORATORY DATA: White count 7.6, H and H 10/23 with platelet count of 279. INR 1.39. Chemistry shows chloride of 112, otherwise within normal limits. BUN of 26, albumin 3.1, total protein 8.5. TSH 0.487, Dilantin 24.5. Valproic acid is 50. DIAGNOSTICS: There was a head CT done on admission shows no evidence of acute intracranial hemorrhage. There is evidence of previous old left MCA territory infarct. EKG sinus rhythm at a rate of 86. There is evidence for inferior infarct. IMPRESSION: 1. Altered mental status, likely secondary to Dilantin toxicity. 2. Dilantin toxicity. 3. History of old left-sided cerebrovascular vascular accident with late effects. 4. Essential hypertension. 5. History of prostate cancer. 6. History of coronary artery disease. 7. Glaucoma. PLAN: The patient has been admitted to telemetry for further management and care. He is currently receiving IV fluids and Dilantin has been withheld. We will continue to monitor Dilantin levels on a daily basis. He has been kept on Keppra and Depakote and also will be continued on with his other medications as scheduled. JOB# [id number] MTDD
[2017-07-29 14:39] LABS: HEMATOCRIT 28.9 % (41.0-60); HEMOGLOBIN 9.3 gm/dL (12-16); MEAN CORPUSCULAR HEMOGLOBIN 27.4 pg (27.0-31.0); MEAN CORPUSCULAR HGB CONC 32.2 pg (28.0-36.0); MEAN PLATELET VOLUME 8.8 fl; PLATELET COUNT 303 Th/cmm (150-400); RED BLOOD COUNT 3.41 Mil/cmm (3.80-5.80); RED CELL DISTRIBUTION WIDTH 21.2 % (11.5-20.0); WHITE BLOOD COUNT 6.9 Th/cmm (4.8-10.8)
[2017-07-29 15:04] LABS: ANION GAP 8.5 (7.0-16.0); BUN - UREA NITROGEN 31 mg/dL (7-25); BUN/CREATININE RATIO 44.3; CALCIUM SERUM 8.2 mg/dL (8.6-10.3); CARBON DIOXIDE 23.8 mEq/L (21.0-31.0); CHLORIDE 116 mEq/L (98-107); CREATININE - SERUM 0.7 mg/dL (0.7-1.3); GLUCOSE 155 mg/dL (70-105); MAGNESIUM 1.9 mg/dL (1.9-2.7); POTASSIUM SERUM 3.3 mEq/L (3.5-5.1); SODIUM SERUM 145 mEq/L (136-145)
[2017-07-29 15:14] LABS: ANISOCYTOSIS 1+; BASOPHIL 3 % (0-3); EOSINOPHIL 3 % (0-5); NEUTROPHILS 74 % (40-80); TOTAL CELLS COUNTED 100
[2017-07-29 15:15] LABS: PLATELET ESTIMATE ADEQUATE (NORMAL); TARGET CELLS 1+
[2017-07-29] MEDS ORDERED: Potassium Chloride 20 mEq ER Tab PO ONE (15:30)
[2017-07-30] MEDS: Sodium Chloride 0.9% 1,000 ML IV SCH (04:27)
[2017-07-30 06:09] LABS: % BASOPHILS 0.1 % (0.0-2.0); % EOSINOPHILS 3.2 % (0.0-5.0); % LYMPHOCYTES 14.3 % (20.0-50.0); % MONOCYTES 7.8 % (2.0-10.0); % NEUTROPHILS 74.6 % (40.0-80.0); HEMOGLOBIN 9.1 gm/dL (12-16); MEAN CELL VOLUME 84.7 fl (80-99); MEAN CORPUSCULAR HEMOGLOBIN 27.4 pg (27.0-31.0); MEAN CORPUSCULAR HGB CONC 32.3 pg (28.0-36.0); MEAN PLATELET VOLUME 8.5 fl; NEUTROPHILE ABSOLUTE 5.6 Th/cmm (1.8-8.0); PLATELET COUNT 271 Th/cmm (150-400); RED BLOOD COUNT 3.31 Mil/cmm (3.80-5.80); RED CELL DISTRIBUTION WIDTH 20.2 % (11.5-20.0); WHITE BLOOD COUNT 7.5 Th/cmm (4.8-10.8)
[2017-07-30 06:27] LABS: ANION GAP 9.7 (7.0-16.0); BUN - UREA NITROGEN 25 mg/dL (7-25); BUN/CREATININE RATIO 41.7; CARBON DIOXIDE 24.1 mEq/L (21.0-31.0); CHLORIDE 116 mEq/L (98-107); CREATININE - SERUM 0.6 mg/dL (0.7-1.3); GLUCOSE 83 mg/dL (70-105); MAGNESIUM 1.8 mg/dL (1.9-2.7); PHENYTOIN 14.5 ug/ml (10.0-20.0); POTASSIUM SERUM 3.8 mEq/L (3.5-5.1); SODIUM SERUM 146 mEq/L (136-145)
--- NOTE | 2017-07-30 18:32 | Discharge Summary ---
DATE OF DISCHARGE: 07/30/2017 ADMITTING DIAGNOSES: 1. Altered mental status. 2. Dilantin toxicity. SECONDARY DIAGNOSES: Include: 1. History of seizure disorder. 2. History of old left-sided cerebrovascular accident with late effects. 3. Essential hypertension. 4. History of prostate cancer. 5. History of coronary artery disease. 6. History of glaucoma. DISCHARGE DIAGNOSES: 1. Altered mental status, resolved. 2. Dilantin toxicity, resolved. CONSULTANTS: There were no consultants used during this admission. MAJOR PROCEDURES: Head CT done on admission on 07/27/2017 showed no evidence of acute intracranial hemorrhage. There is evidence of previous old left MCA territory infarct with associated encephalomalacia and atrophy. There is atherosclerotic vascular disease. There are right lobe calcifications, which may be due to chronic infectious or inflammatory processes. BRIEF HOSPITAL COURSE: The patient is a 71-year-old gentleman who was actually admitted to this facility about a month ago for seizure disorder. The patient this time around was noted to be lethargic with [facility] and was transferred to the ER for further management and care. His Dilantin level at the ER was 24 and there were no other major abnormalities. He underwent a CT of the brain showing no acute findings and was admitted to Med/Surg for further management and care. He was kept on his medications, was placed on IV fluids and Dilantin was withheld. Follow up Dilantin level on 07/28/2017 was 24.1 and by 07/30/2017, it had resolved or actually had normalized level of 14.5. Since admission, he has remained comfortable, able to take his p.o. and his sensorium did improve upon admission. MEDICATIONS ON DISCHARGE: Tylenol 325 q. 6 p.r.n. for pain, vitamin D3 at 1000 international units every day, Pletal 100 mg b.i.d., Depakote DR 500 mg b.i.d., heparin subQ 5000 q.12, ibuprofen 600 mg t.i.d. with meals p.r.n. for pain, Ensure liquid, Xalatan eye drops to the left eye once a day, Keppra 750 b.i.d., Megace 400 mg b.i.d., timolol eye drops to each eye one drop. Dilantin will be given 100 mg t.i.d. every Leonardo, Sunday, Sunday, and Sundays and 100 mg b.i.d. will be given Tuesdays, and Saturdays. CONDITION ON DISCHARGE: Stable. DISPOSITION: The patient will be discharged back to [facility]. [facility]# [id number] MTDD
== END 2017-07-30 13:30 | disposition home or self-care (01) | DRG 948 ==
LOC: ER 13:58 → MSI 17:20 → TELE 19:00
PROVIDERS: ADMIT Internal Medicine; ATTEND Internal Medicine
DX: R41.82 Altered mental status, unspecified (principal); F01.50 Vascular dementia, unspecified severity, without behavioral disturbance, psychotic disturbance, mood disturbance, and anxiety; G83.9 Paralytic syndrome, unspecified; E44.1 Mild protein-calorie malnutrition; I10 Essential (primary) hypertension; D64.9 Anemia, unspecified; G40.909 Epilepsy, unspecified, not intractable, without status epilepticus; I69.30 Unspecified sequelae of cerebral infarction; I25.10 Atherosclerotic heart disease of native coronary artery without angina pectoris; H40.9 Unspecified glaucoma; I25.2 Old myocardial infarction; E78.5 Hyperlipidemia, unspecified; T42.0X5A Adverse effect of hydantoin derivatives, initial encounter; Y92.89 Other specified places as the place of occurrence of the external cause; Z85.46 Personal history of malignant neoplasm of prostate
CPT/HCPCS: 36415-UA; 70450-TC; 71010-TC; 80048-TC; 80053-TC; 80061-TC; 80164-TC; 80185-TC; 83735-TC; 84443-TC; 84484-TC; 85007-TC; 85025-TC; 85027-TC; 85610-TC; 85730-TC; 86592-TC; 93005; J1644; J7030; Z7610